=== PATIENT | female | born 1985 | race African-American/Black ===

== ENCOUNTER 2017-05-10 13:28 | Emergency (ER) | payer OTHER ==
[~2017-05-10] VITALS: Ht 162.6 cm; Wt 54.4 kg
[~2017-05-10 13:28] MED LIST: BACTRIM DS TAB1 EACH PO; BUTALB-APAP-CA1 EACH PO; CELEXA 10 MG TA10 M1 PO; DEPO-PROVERA; DOXYCYCLINE 10100 MG PO; FIORICET 50-301 EACH PO; FLEXERIL PO; IMITREX 50 MG T50 MG PO; MOBIC7.5 MG PO; NAPROSYN250 MG PO; NAPROSYN500 MG PO; NORCO 5-325 TA1 EACH PO; PENICILLIN V P500 MG PO; PENICILLIN VK500 M1 PO; PHENERGAN 25 MG25 M1 PO; REMERON15 MG PO; RISPERDAL M-TAB1 MG PO; TOPAMAX50 MG PO; TRAMADOL 50 MG50 MG PO; ULTRAM 50MG TAB50 MG PO
[2017-05-10] MEDS ORDERED: MOBIC15 MG PO (15:03)
== END 2017-05-10 15:10 | disposition home or self-care (01) ==
LOC: ER 13:28
DX: H66.92 Otitis media, unspecified, left ear (principal); F17.210 Nicotine dependence, cigarettes, uncomplicated; F32.9 Major depressive disorder, single episode, unspecified

== ENCOUNTER 2018-12-24 18:12 | Emergency (ER) | payer OTHER ==
[~2018-12-24] VITALS: Ht 162.6 cm; Wt 56.7 kg
[~2018-12-24 18:12] MED LIST changes: +MOBIC15 MG PO
[2018-12-24] MEDS ORDERED: ULTRACET TABLET1 TAB PO (19:09)
[2018-12-24] MEDS ORDERED: IBUPROFEN 600600 M1 PO (19:09)
[2018-12-24 22:53] VITALS: BP 132/68
== END 2018-12-24 19:50 | disposition home or self-care (01) ==
LOC: ER 18:12
DX: K02.9 Dental caries, unspecified (principal); F17.210 Nicotine dependence, cigarettes, uncomplicated; F41.9 Anxiety disorder, unspecified; G43.909 Migraine, unspecified, not intractable, without status migrainosus; Z86.2 Personal history of diseases of the blood and blood-forming organs and certain disorders involving the immune mechanism

== ENCOUNTER 2019-04-10 10:38 | Emergency (ER) | payer OTHER ==
[~2019-04-10] VITALS: Ht 162.6 cm; Wt 59.0 kg
[~2019-04-10 10:38] MED LIST changes: +IBUPROFEN 600600 M1 PO; +ULTRACET TABLET1 TAB PO
[2019-04-10] MEDS ORDERED: PROAIR HFA8.5 GM INH (11:24)
[2019-04-10 12:16] LABS: URINE BILIRUBIN NEGATIVE (Negative); URINE BLOOD NEGATIVE (Negative); URINE CLARITY CLEAR; URINE COLOR YELLOW; URINE GLUCOSE-RANDOM* NEGATIVE (Negative); URINE KETONES 1+ (Negative); URINE LEUKOCYTES-REFLEX NEGATIVE (Negative); URINE NITRITE-REFLEX NEGATIVE (Negative); URINE PROTEIN (DIPSTICK) TRACE (Negative); URINE SPECIFIC GRAVITY 1.025 (1.005-1.035); URINE UROBILINOGEN 0.2 E.U./dl (0.2-1.0)
[2019-04-10] MEDS ORDERED: NORFLEX100 MG PO (13:21)
[2019-04-10] MEDS ORDERED: ULTRAM 50MG TAB50 MG PO (13:21)
[2019-04-10] MEDS ORDERED: PROTONIX40 MG PO (13:21)
[2019-04-10] MEDS ORDERED: TYLENOL325 MG PO (13:21)
[2019-04-10 13:40] VITALS: BP 115/79
== END 2019-04-10 13:40 | disposition home or self-care (01) ==
LOC: ER 10:38
PROVIDERS: Emergency Medicine
DX: R10.31 Right lower quadrant pain (principal); M79.651 Pain in right thigh; G43.909 Migraine, unspecified, not intractable, without status migrainosus; F41.9 Anxiety disorder, unspecified; F17.210 Nicotine dependence, cigarettes, uncomplicated; Z86.2 Personal history of diseases of the blood and blood-forming organs and certain disorders involving the immune mechanism

== ENCOUNTER 2019-09-18 14:18 | Emergency (ER) | payer OTHER ==
[~2019-09-18] VITALS: Ht 162.6 cm; Wt 56.7 kg
[~2019-09-18 14:18] MED LIST changes: +NORFLEX100 MG PO; +PROAIR HFA8.5 GM INH; +PROTONIX40 MG PO; +TYLENOL325 MG PO
[2019-09-18 16:22] LABS: ABSOLUTE NEUTROPHILS 8.5 thou/uL (1.4-8.2); BASOPHILS 0.4 % (0.0-2.0); HEMATOCRIT 31.8 % (37.0-47.0); HEMOGLOBIN 10.8 gm/dL (12.0-15.0); LYMPHOCYTES 15.3 % (24.0-44.0); MCH 33.7 pg (26.0-34.0); MCHC 33.8 g/dL (28.0-37.0); MCV 99.5 fL (80.0-100.0); MONOCYTES 2.7 % (1.0-8.0); PLATELET COUNT 309 thou/uL (150-400); POLYS 81.6 % (36.0-66.0); WBC 10.4 thou/uL (4.0-11.0)
[2019-09-18] MEDS ORDERED: DOXYCYCLINE 10100 MG PO (16:32)
[2019-09-18] MEDS ORDERED: NORCO 10-325 T1 EACH PO (16:32)
[2019-09-18 16:45] LABS: ALBUMIN 2.8 g/dL (3.4-5.0); ANION GAP 6 mmol/L (7-16); BUN 18 mg/dL (7-18); CALCIUM 8.8 mg/dL (8.5-10.1); CHLORIDE 96 mmol/L (98-107); CO2 29 mmol/L (21-32); CREATININE 0.6 mg/dL (0.6-1.0); GLUCOSE 110 mg/dL (74-106); POTASSIUM 3.9 mmol/L (3.5-5.1); SGOT 20 U/L (15-37); SGPT 56 U/L (30-65); SODIUM 131 mmol/L (136-145); TOTAL BILIRUBIN 0.2 mg/dL (0.2-1.0); TOTAL PROTEIN 7.4 g/dL (6.4-8.2); TROPONIN-I <0.06 ng/mL (<0.06)
[2019-09-18 17:11] VITALS: BP 110/74
--- NOTE | 2019-09-19 08:26 | EKG ---
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
== END 2019-09-18 17:12 | disposition home or self-care (01) ==
LOC: ER 14:18
PROVIDERS: Physician Assistant
DX: R07.89 Other chest pain (principal); C34.91 Malignant neoplasm of unspecified part of right bronchus or lung; J18.9 Pneumonia, unspecified organism; G43.909 Migraine, unspecified, not intractable, without status migrainosus; F17.210 Nicotine dependence, cigarettes, uncomplicated; Z79.899 Other long term (current) drug therapy